=== PATIENT | female | born 2000 | race Caucasian/White ===

== ENCOUNTER 2025-02-09 13:34 | Inpatient (IN) ==
[2025-02-09] MEDS ORDERED: hydrALAZINE INJ 20 MG/ML VIAL IVP PRN (14:12)
[2025-02-09] MEDS ORDERED: SODIUM CHLORIDE FLUSH 0.9% 10 ML SYRINGE IVP PRN (14:12)
[2025-02-09] MEDS ORDERED: TRANEXAMIC ACID IN NACL 1,000 MG/100 ML BAG IV PRN (14:12)
[2025-02-09] MEDS ORDERED: TERBUTALINE 1 MG/ML VIAL SUBQ PRN (14:12)
[2025-02-09] MEDS ORDERED: METHYLERGONOVINE 0.2 MG/ML VIAL IM PRN (14:12)
[2025-02-09] MEDS ORDERED: OXYTOCIN/SODIUM CHLORIDE 500 ML IV PRN (14:12)
[2025-02-09] MEDS ORDERED: fentaNYL 100 MCG/2 ML VIAL IVP PRN (14:12)
[2025-02-09] MEDS ORDERED: CARBOPROST TROMETHAMINE 250 MCG/ML VIAL IM PRN (14:12)
[2025-02-09] MEDS ORDERED: LABETALOL 20 MG/4 ML SYRINGE IVP PRN ×3 (14:12)
[2025-02-09] MEDS ORDERED: OXYTOCIN 10 UNIT/ML VIAL IM PRN (14:12)
--- NOTE | 2025-02-09 14:24 | HISTORY & PHYSICAL EXAMINATION ---
Admit History Smoking Status: Never smoker Other Maternal History Other Maternal History: This 24 yo @ 39+5 weeks by 14 week ultrasound presented to [facility] for elective induction of labor. Upon arrival her cervix exam was deferred as she was 1.5cm/60/-3/ posterior/medium/intact and cephalic in the clinic two days prior. The cervical exam was very uncomfortable for her. León score 4. She understands her cervix is not yet favorable for induction and that the process with be multi-day event and desires to begin the induction process today vs awaiting natural onset of labor. Will plan for preinduction cervical ripening with misoprostol. Reviewed that Misoprostol is used off-label for cervical ripening to soften and dilate the cervix before gynecological procedures and labor. Although not officially approved for this indication, studies have shown it to be effective and generally safe when used under careful supervision. However, because misoprostol stimulates uterine contractions, there is a risk of uterine tachysystole (excessively frequent contractions). This can increase the risk of uterine hyperstimulation or distress in -related uses, so careful dosing and monitoring are essential. Reviewed that risks of labor include but are not limited to section, prolonged labor, vacuum extraction, episotomy, hemorrhage, and additional risks exist re: prolonged second stage related to extraction. Reviewed back up OBGYN is available for consultations, emergency interventions and transfer of care if indicted. She has been a patient of [facility] care for the duration of her which has remained uncomplicated with the exception of elevated BP in at 14+1 weeks gestation and then at 33+1 weeks gestation without diagnosis of hypertension. ROS: No Headache, visual changes or right upper quadrant abdominal pain. Denies significant N/V. Denies urinary urgency or dysuria. All other symptoms reviewed and were negative except per HPI. In the event of an emergency, accepts the administration of blood products. Recent BP: 128/80 Labs: H&H 13.5/38.4, PLT 264. 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 Monogamous with male partner. Denies current use of alcohol or tobacco, marijuana or other recreational drugs. Reports that she is safe in current relationship. Family Hx:Parkinson's disease & alcoholism (PGF), dementia (PGM & Mother), colon cancer (MGF). Denies family history of congenital anomalies, Cystic Fibrosis or chromosomal abnormalities Allergies: NKA Medications: PNV, LDASA Problems: Elevated BP at initial OB encounter. LDASA initiated at approximately 14 weeks FOB: Gustavo Elias LMP:05/16/2024 GABRIELLA by LMP: 02/20/2025 U/S:08/14/2024 @ 14+1 NOT c/w LMP Final GABRIELLA:02/11/2025 by US Pre- weight: 196 BMI: 30.9 Blood type: A+ Antibody screen: negative CBC: PLT HCT HGB 12.4/36.3 228 rubella: non immune VZV: Immune HBsAg: Negative HepC: NR RPR/AB-EIA: NR HIV: NR Flu: declines COVID: declines PAP: 02/20/2024 NILM GC/CT: 08/14/2024 Neg HSV: denies Genetic screening: MaterniT Neg, Frag X-- negative, CF- Negative, SMA- Negative AFP:not done FAS: Placenta:anterior w/o previa Cord:3VC RONAL:wnl EFW:402g, 44th%ile 50gm GCT: 122 TDAP: Declines Breast Pump: 12/11/2024 3rd trimester H/H PLT [id number] 3rd trimester RPR NR RSV: declines GBS: 01/15/25 neg third trimester EPDS: 1 Delivery plan: unmedicated delivery, desires to labor in water understands our policy does not support in tub. Okay with saline lock, plans to breastfeed. Baby meds: Okay with vitamin K, plans to decline erythromycin and hepatitis B. contraception Physical exam: Normocephalic, atraumatic Lungs: No increased work of breathing Abdomen gravid, soft, nontender. EFW 3950g FHR baseline wondering 125-145, moderate to marked variability, + accelerations, no significant decelerations. Not delvis. SVE 1.5/60/-3 & vertex 02/07/2025 membranes intact Bilateral LE's no edema Mood is good. Assessment: 24 yo @ 39+5 weeks gestation by 14 wk U/S Term induction of labor FHR 125-145 Cat I. Overall reassuring. GBS negative Plan: Admit to [facility] for preinduction cervical ripening: Misoprostol 50mcg BC q4 hours x6 doses or until otherwise contraindicated. Continuous monitoring Support her desires for pain management as arises. Jacuzzi PRN. Nitrous oxide PRN. Epidural PRN Maternal Request but currently not desiring epidural as part of her plan. Meds/Allgy Home Medications Ambulatory Orders Medication Instructions Recorded Confirmed vits no.126-ferrous fum tab PO QDAY 08/09/24 02/07/25 28 mg iron-folic acid 800 mcg tablet (Classic ) Allergies Allergies Allergy/AdvReac Type Severity Reaction Status Date / Time No Known Drug Allergies Allergy Verified 01/29/25 16:20 PFSH Active Problems All Active Problems (Updated 02/09/25 @ 14:18 by RAEANN Lemos) 39 weeks gestation of (Acute) Right upper quadrant abdominal pain affecting (Acute) Uterine size date discrepancy (Acute) Elevated blood pressure reading in office without diagnosis of hypertension (Acute) Vaginal irritation (Acute) Pelvic pain during in second trimester, antepartum (Acute) Vaginal discharge (Acute) Normal in second trimester (Acute) Encounter for other specified screening (Acute) Encounter for supervision of normal , unspecified, first trimester (Acute) Positive test (Acute) Surgical History Surgical History (Updated 08/09/24 @ 13:43 by Sharla Perry RN) Hx of tonsillectomy Mcgrath teeth extracted Family History Family History (Updated 08/09/24 @ 13:45 by Sharla Perry RN) Paternal grandfather Parkinsons disease Alcoholism Paternal grandmother Dementia Mother Dementia Maternal grandfather Colon cancer Social History Social History (Updated 12/11/24 @ 15:16 by Shelli Mejia CNM, [employer]) Smoking Status: Never smoker Do you dip or chew tobacco?: No Do you vape?: No Living arrangement: At home Living Condition: With spouse/s.o. Level: Independent Do you feel safe in your home environment?: Yes History of physical, verbal, emotional, or financial abuse?: No ETOH Use: None Substance Use: denies use Are you sexually active?: Yes Occupation - Current: [employer] Plan for Labor Plan For Labor I expect patient to be DC'd or transferred within 96 hours.: Yes Conclusion/Plan Lab Results 02/09/25 14:05 02/09/25 14:05
[2025-02-09 14:34] LABS: HCT - HEMATOCRIT 38.4 % (37.0-47.0); HGB - HEMOGLOBIN 13.5 g/dL (12.0-16.0); MEAN PLATELET VOLUME 10.4 fL (7.9-10.8); NRBC ABSOLUTE COUNT (AUTO) 0.00 x10^3/uL; NUCLEATED RED BLOOD CELLS AUTO 0.0 /100WBC; PLT - PLATELET COUNT 264 10^3/uL (130-450); RED CELL DISTRIBUTION WIDTH 12.7 % (12.0-15.0)
[2025-02-09 14:46] LABS: ALT ALANINE AMINOTRANSFERASE 14.0 IU/L (10-60); AST ASPARTATE AMINOTRANSFERASE 15.0 IU/L (10-42); BUN - BLOOD UREA NITROGEN 11.0 mg/dL (6-20); CARBON DIOXIDE - CO2 18.0 mmol/L (21-32); CREATININE 0.7 mg/dL (0.6-1.3); GFR - MDRD 104.0 (>89)
[2025-02-09] MEDS ORDERED: SODIUM CHLORIDE FLUSH 0.9% 10 ML SYRINGE IVP SCH (15:00)
[2025-02-09] MEDS ORDERED: ACETAMINOPHEN 500 MG TABLET PO PRN (15:41)
[2025-02-09] MEDS ORDERED: METOCLOPRAMIDE 10 MG/2 ML VIAL IVP PRN (15:42)
[2025-02-09] MEDS ORDERED: ONDANSETRON 4 MG/2 ML VIAL IVP PRN (15:42)
[2025-02-09] MEDS ORDERED: CALCIUM CARBONATE CHEW 500 MG TABLET PO PRN (15:43)
--- NOTE | 2025-02-09 18:38 | PROVIDER PROGRESS NOTE ---
Labor Progress Note Labor Progress Note Labor Progress Note/Additional Text: S: Comfortable, ambulating and resting in room, not feeling and contractions or discomfort. S/P misoprostol 50mcg x1 dose. O: FHR baseline wandering 135-150, [id number] variability (mostly moderate), + accels, intermittent variables and possible rare prolonged decels vs maternal tracing. Overall reassuring with moderate variability maintained throughout. Uterine irritability 20-40 seconds, without distinguishable contraction pattern. Will encourage oral hydration. Reviewed the last 2 hours of EFM tracing with stone driller helper OBGYN. Agreed with plan of care to continue with misoprostol as ordered given only a small amount of u terine irritability and no discernable contractions pattern. No SVE since admission. Last SVE in clinic on 02/07 1.5/60/-3 S/p 1 doses 50mcg BC misoprostol A: 24yo @ 39+5wks gestation by 14 week ultrasound Elective IOL FHR Category I, intermittent FHR category II, overall reassuring GBS neg RH positive P: Continue with misoprostol for cervical ripening Continue continuous monitoring. nitrous, IV fentanyl, jacuzzi or Epidural per maternal request as pain increases. encourage rest during cervical ripening period Reviewed plan of care with on-call physician
--- NOTE | 2025-02-09 18:40 | PROVIDER PROGRESS NOTE ---
Labor Progress Note Labor Progress Note Labor Progress Note/Additional Text: Reviewed plan of care to continue misoprostol 50mcg BC q4 hours with primary day shift RN.
--- NOTE | 2025-02-09 20:32 | PROVIDER PROGRESS NOTE ---
Labor Progress Note Labor Progress Note Labor Progress Note/Additional Text: Patient is s/p misoprostol x2 doses. Last dose approximately 191. Safe nursing staffing does not allow for continuation of cervical ripening until 729. This will be discussed with the patient. Given intermittent category II tracing, I am uncomfortable discontinuing her monitoring through the night, even with expectant management. I am also uncomfortable discharging her to home. Nursing can support continuos monitoring and expectant management through the night but no medication management or CRB can be supported. If IOL cannot move forward tomorrow, I will discuss options with the patient to transfer care so we can safely help her move towards delivery.
[2025-02-09] MEDS: LACTATED RINGERS 1,000 ML IV PRN (20:50)
--- NOTE | 2025-02-10 08:54 | PROVIDER PROGRESS NOTE ---
Labor Progress Note Labor Progress Note Labor Progress Note/Additional Text: 24yo @ 39+6 weeks gestation admitted yesterday for elective induction of labor. Misoprostol x2 dose. Last dose approximately 1930 on 02/09. I Was made aware of, and reviewed tracing this morning with dayshift RN upon my arrival to the unit. Notably, significant prolonged decelerations overnight x6 lasting 4-6 minutes each. Now delvis q 2-3minutes, feeling discomfort with contractions but not pain. SVE 1.5/70/-3, midpostion, intact. Remote from delivery. @0822 this morning following SVE, she had an 8 minute deceleration to the 80's despite uterine resuscitation measures followed by tachycardia and minimal variability. Discussed with patient that with significant distress we have limited options induction/augmentation however she is delvis and baby has recovered so at this moment things are okay to continue to monitor. She desired nitrous for pain management however, it is not available on the unit. Has difficulty tolerating vaginal exams. Unable to safely release bag of water. I have called to consult my OBGYN backup to review the tracing, patient status and to define a plan moving forward. Following the discussion, will plan for BSUS RONAL, and expectant management. Orthostatics normal.
[2025-02-10] MEDS: LACTATED RINGERS 1,000 ML IV PRN (09:10)
--- NOTE | 2025-02-10 09:23 | PROVIDER PROGRESS NOTE ---
Subjective Subjective Subjective: BSUS RONAL SDP 5.39 Current Medications Current Medications Current Medications: Current Medications Generic Name Dose Route Start Last Admin Trade Name Freq PRN Reason Stop Dose Admin Acetaminophen 1,000 mg 02/09/25 15:41 Acetaminophen 500 Mg Tablet PO Q8HR PRN Pain or Fever > 38C (100.4F) Calcium Carbonate/Glycine 500 mg 02/09/25 15:43 Calcium Carbonate Chew 500 Mg Tablet PO BID PRN heartburn Carboprost Tromethamine 250 mcg 02/09/25 14:12 Carboprost Tromethamine 250 Mcg/Ml Vial IM .ONCE PRN Hemorrhage Diphenhydramine HCl 25 mg 02/09/25 15:43 Diphenhydramine 25 Mg Capsule PO Q4HR PRN ITCHING Fentanyl 50 mcg 02/09/25 14:12 Fentanyl 100 Mcg/2 Ml Vial IVP Q1H PRN Severe Pain (score 7-10) Hydralazine HCl 5 - 10 mg 02/09/25 14:12 Hydralazine Inj 20 Mg/Ml Vial IVP Q20M PRN SBP> or= 160 OR DBP> or= 110 Protocol Hydroxyzine Pamoate 25 mg 02/09/25 15:43 Hydroxyzine Pamoate 25 Mg Capsule PO QPM PRN Insomnia Lactated Ringer's 500 mls @ 999 mls/hr 02/09/25 14:12 02/09/25 22:00 Lr IV Infused PRN PRN Infusion Heart Rate Abnormalities Oxytocin/Sodium Chloride 500 mls @ 999 mls/hr 02/09/25 14:12 Pitocin/Sodium Chloride IV PRN PRN POST- HEMORR PREVENTION Protocol 999 MILLIUNIT/MIN Tranexamic Acid 1,000 mg in 100 mls @ 600 mls/hr 02/09/25 14:12 Tranexamic 1,000 Mg/100ml-Nacl IV Q30M PRN EBL >1200mL and within 3hr Lactated Ringer's 1,000 mls @ 125 mls/hr 02/09/25 16:00 02/10/25 09:10 Lr IV 125 mls/hr .Q8H PRN Administration dehydration Labetalol HCl 20 - 80 mg 02/09/25 14:12 Labetalol 20 Mg/4 Ml Syringe IVP Q10M PRN SBP> or= 160 OR DBP> or= 110 Protocol Labetalol HCl 20 mg 02/09/25 14:12 Labetalol 20 Mg/4 Ml Syringe IVP .ONCE PRN SBP> or= 160 OR DBP> or= 110 Protocol Labetalol HCl 20 - 40 mg 02/09/25 14:12 Labetalol 20 Mg/4 Ml Syringe IVP Q10M PRN SBP> or= 160 OR DBP> or= 110 Protocol Lidocaine HCl 20 ml 02/09/25 14:12 Lidocaine 1% 20 Ml Mdv ID 02/12/25 14:13 .ONCE PRN PERINEAL REPAIR Methylergonovine Maleate 0.2 mg 02/09/25 14:12 Methylergonovine 0.2 Mg/Ml Vial IM .ONCE PRN Hemorrhage Metoclopramide HCl 5 mg 02/09/25 15:42 Metoclopramide 10 Mg/2 Ml Vial IVP Q6HR PRN Nausea / Vomiting Misoprostol 600 mcg 02/09/25 14:12 Misoprostol 200 Mcg Tablet BC .ONCE PRN Hemorrhage Misoprostol 800 mcg 02/09/25 14:12 Misoprostol 200 Mcg Tablet WI .ONCE PRN Hemorrhage Misoprostol 50 mcg 02/09/25 15:00 02/09/25 19:21 Misoprostol 100 Mcg Tablet BC 50 mcg Q4H JARRED Administration Nifedipine 10 - 20 mg 02/09/25 14:12 Nifedipine 10 Mg Capsule PO Q20M PRN SBP> or= 160 OR DBP> or= 110 Protocol Ondansetron HCl 4 mg 02/09/25 15:42 Ondansetron 4 Mg/2 Ml Vial IVP Q4HR PRN Nausea / Vomiting Oxytocin 10 unit 02/09/25 14:12 Oxytocin 10 Unit/Ml Vial IM .ONCE PRN Step One if no IV access. Multivit/Folic Acid/Iron 1 tab 02/10/25 08:00 Vitamin Tablet PO DAILYWM JARRED Simethicone 80 mg 02/09/25 15:45 Simethicone Chew 80 Mg Tablet PO 0900,1300,1800,2100 PRN gastric upset Sodium Chloride 10 ml 02/09/25 14:12 Sodium Chloride Flush 0.9% 10 Ml Syringe IVP PRN PRN NEEDED PER PROVIDER ORDERS Sodium Chloride 10 ml 02/09/25 15:00 Sodium Chloride Flush 0.9% 10 Ml Syringe IVP Q8H [facility] Terbutaline Sulfate 0.25 mg 02/09/25 14:12 Terbutaline 1 Mg/Ml Vial SUBQ .ONCE PRN Tachystole Objective Vital Signs/Intake & Output Intake & Output: Intake & Output 02/07/25 02/08/25 02/09/25 02/10/25 23:59 23:59 23:59 23:59 Intake Total 500 / 500 Balance 500 / 500 Weight (kg) 233 lb Lab Results 02/09/25 14:05 02/09/25 14:05 Other Labs: Lab Results x24hrs 02/09/25 Range/Units 14:05 WBC 8.3 (4.8-10.8) x10^3/uL RBC 4.24 (4.20-5.40) 10^6/uL Hgb 13.5 (12.0-16.0) g/dL Hct 38.4 (37.0-47.0) % MCV 90.6 (81.0-99.0) fL MCH 31.8 H (27.0-31.0) pg MCHC 35.2 (32.0-36.0) g/dL RDW 12.7 (12.0-15.0) % Plt Count 264 (130-450) 10^3/uL MPV 10.4 (7.9-10.8) fL Neut # (Auto) 6.1 (1.5-6.6) 10^3/uL Lymph # (Auto) 1.6 (1.5-3.5) 10^3/uL [place] # (Auto) 0.4 (0.0-1.0) 10^3/uL Eos # (Auto) 0.1 (0.0-0.7) 10^3/uL Baso # (Auto) 0.0 (0.0-0.1) 10^3/uL Absolute Nucleated RBC 0.00 x10^3/uL Nucleated RBC % 0.0 /100WBC Sodium 134 L (135-145) mmol/L Potassium 3.8 (3.5-4.5) mmol/L Chloride 107 (101-111) mmol/L Carbon Dioxide 18 L (21-32) mmol/L Anion Gap 9.0 (6-13) BUN 11 (6-20) mg/dL Creatinine 0.7 (0.6-1.3) mg/dL Estimated GFR (MDRD) 104 (>89) Glucose 150 H (74-104) mg/dL Calcium 9.1 (8.5-10.3) mg/dL Total Bilirubin 0.4 (0.2-1.0) mg/dL AST 15 (10-42) IU/L ALT 14 (10-60) IU/L Alkaline Phosphatase 194 H (42-121) IU/L Total Protein 6.6 (6.4-8.9) g/dL Albumin 3.8 (3.2-5.5) g/dL Globulin 2.8 (2.1-4.2) g/dL Albumin/Globulin Ratio 1.4 (1.0-2.2) Blood Type A POSITIVE Antibody Screen NEGATIVE
--- NOTE | 2025-02-10 09:32 | PROVIDER PROGRESS NOTE ---
Subjective Subjective Subjective: Lengthy discussion with patient regarding prolonged decelerations, limitations of reserve and remote from delivery status and limited options for progression as well as the possibility of primary c/s. The unit was able to secure the last nitrous tubing so she will have the option for nitrous analgesia. If baby does well the next while will see if patient tolerates a CRB placement. Current Medications Current Medications Current Medications: Current Medications Generic Name Dose Route Start Last Admin Trade Name Freq PRN Reason Stop Dose Admin Acetaminophen 1,000 mg 02/09/25 15:41 Acetaminophen 500 Mg Tablet PO Q8HR PRN Pain or Fever > 38C (100.4F) Calcium Carbonate/Glycine 500 mg 02/09/25 15:43 Calcium Carbonate Chew 500 Mg Tablet PO BID PRN heartburn Carboprost Tromethamine 250 mcg 02/09/25 14:12 Carboprost Tromethamine 250 Mcg/Ml Vial IM .ONCE PRN Hemorrhage Diphenhydramine HCl 25 mg 02/09/25 15:43 Diphenhydramine 25 Mg Capsule PO Q4HR PRN ITCHING Fentanyl 50 mcg 02/09/25 14:12 Fentanyl 100 Mcg/2 Ml Vial IVP Q1H PRN Severe Pain (score 7-10) Hydralazine HCl 5 - 10 mg 02/09/25 14:12 Hydralazine Inj 20 Mg/Ml Vial IVP Q20M PRN SBP> or= 160 OR DBP> or= 110 Protocol Hydroxyzine Pamoate 25 mg 02/09/25 15:43 Hydroxyzine Pamoate 25 Mg Capsule PO QPM PRN Insomnia Lactated Ringer's 500 mls @ 999 mls/hr 02/09/25 14:12 02/09/25 22:00 Lr IV Infused PRN PRN Infusion Heart Rate Abnormalities Oxytocin/Sodium Chloride 500 mls @ 999 mls/hr 02/09/25 14:12 Pitocin/Sodium Chloride IV PRN PRN POST- HEMORR PREVENTION Protocol 999 MILLIUNIT/MIN Tranexamic Acid 1,000 mg in 100 mls @ 600 mls/hr 02/09/25 14:12 Tranexamic 1,000 Mg/100ml-Nacl IV Q30M PRN EBL >1200mL and within 3hr Lactated Ringer's 1,000 mls @ 125 mls/hr 02/09/25 16:00 02/10/25 09:10 Lr IV 125 mls/hr .Q8H PRN Administration dehydration Labetalol HCl 20 - 80 mg 02/09/25 14:12 Labetalol 20 Mg/4 Ml Syringe IVP Q10M PRN SBP> or= 160 OR DBP> or= 110 Protocol Labetalol HCl 20 mg 02/09/25 14:12 Labetalol 20 Mg/4 Ml Syringe IVP .ONCE PRN SBP> or= 160 OR DBP> or= 110 Protocol Labetalol HCl 20 - 40 mg 02/09/25 14:12 Labetalol 20 Mg/4 Ml Syringe IVP Q10M PRN SBP> or= 160 OR DBP> or= 110 Protocol Lidocaine HCl 20 ml 02/09/25 14:12 Lidocaine 1% 20 Ml Mdv ID 02/12/25 14:13 .ONCE PRN PERINEAL REPAIR Methylergonovine Maleate 0.2 mg 02/09/25 14:12 Methylergonovine 0.2 Mg/Ml Vial IM .ONCE PRN Hemorrhage Metoclopramide HCl 5 mg 02/09/25 15:42 Metoclopramide 10 Mg/2 Ml Vial IVP Q6HR PRN Nausea / Vomiting Misoprostol 600 mcg 02/09/25 14:12 Misoprostol 200 Mcg Tablet BC .ONCE PRN Hemorrhage Misoprostol 800 mcg 02/09/25 14:12 Misoprostol 200 Mcg Tablet FL .ONCE PRN Hemorrhage Misoprostol 50 mcg 02/09/25 15:00 02/09/25 19:21 Misoprostol 100 Mcg Tablet BC 50 mcg Q4H JARRED Administration Nifedipine 10 - 20 mg 02/09/25 14:12 Nifedipine 10 Mg Capsule PO Q20M PRN SBP> or= 160 OR DBP> or= 110 Protocol Ondansetron HCl 4 mg 02/09/25 15:42 Ondansetron 4 Mg/2 Ml Vial IVP Q4HR PRN Nausea / Vomiting Oxytocin 10 unit 02/09/25 14:12 Oxytocin 10 Unit/Ml Vial IM .ONCE PRN Step One if no IV access. Multivit/Folic Acid/Iron 1 tab 02/10/25 08:00 Vitamin Tablet PO DAILYWM JARRED Simethicone 80 mg 02/09/25 15:45 Simethicone Chew 80 Mg Tablet PO 0900,1300,1800,2100 PRN gastric upset Sodium Chloride 10 ml 02/09/25 14:12 Sodium Chloride Flush 0.9% 10 Ml Syringe IVP PRN PRN NEEDED PER PROVIDER ORDERS Sodium Chloride 10 ml 02/09/25 15:00 Sodium Chloride Flush 0.9% 10 Ml Syringe IVP Q8H JARRED Terbutaline Sulfate 0.25 mg 02/09/25 14:12 Terbutaline 1 Mg/Ml Vial SUBQ .ONCE PRN Tachystole Objective Vital Signs/Intake & Output Intake & Output: Intake & Output 02/07/25 02/08/25 02/09/25 02/10/25 23:59 23:59 23:59 23:59 Intake Total 500 / 500 Balance 500 / 500 Weight (kg) 233 lb Lab Results 02/09/25 14:05 02/09/25 14:05 Other Labs: Lab Results x24hrs 02/09/25 Range/Units 14:05 WBC 8.3 (4.8-10.8) x10^3/uL RBC 4.24 (4.20-5.40) 10^6/uL Hgb 13.5 (12.0-16.0) g/dL Hct 38.4 (37.0-47.0) % MCV 90.6 (81.0-99.0) fL MCH 31.8 H (27.0-31.0) pg MCHC 35.2 (32.0-36.0) g/dL RDW 12.7 (12.0-15.0) % Plt Count 264 (130-450) 10^3/uL MPV 10.4 (7.9-10.8) fL Neut # (Auto) 6.1 (1.5-6.6) 10^3/uL Lymph # (Auto) 1.6 (1.5-3.5) 10^3/uL [place] # (Auto) 0.4 (0.0-1.0) 10^3/uL Eos # (Auto) 0.1 (0.0-0.7) 10^3/uL Baso # (Auto) 0.0 (0.0-0.1) 10^3/uL Absolute Nucleated RBC 0.00 x10^3/uL Nucleated RBC % 0.0 /100WBC Sodium 134 L (135-145) mmol/L Potassium 3.8 (3.5-4.5) mmol/L Chloride 107 (101-111) mmol/L Carbon Dioxide 18 L (21-32) mmol/L Anion Gap 9.0 (6-13) BUN 11 (6-20) mg/dL Creatinine 0.7 (0.6-1.3) mg/dL Estimated GFR (MDRD) 104 (>89) Glucose 150 H (74-104) mg/dL Calcium 9.1 (8.5-10.3) mg/dL Total Bilirubin 0.4 (0.2-1.0) mg/dL AST 15 (10-42) IU/L ALT 14 (10-60) IU/L Alkaline Phosphatase 194 H (42-121) IU/L Total Protein 6.6 (6.4-8.9) g/dL Albumin 3.8 (3.2-5.5) g/dL Globulin 2.8 (2.1-4.2) g/dL Albumin/Globulin Ratio 1.4 (1.0-2.2) Blood Type A POSITIVE Antibody Screen NEGATIVE
--- NOTE | 2025-02-10 09:47 | PHARMACY PROGRESS NOTE ---
Best Possible Medication History Admit Date and Time: 02/09/25 1412 Home Medications Medication Instructions Recorded Confirmed Type vits no.126-ferrous fum 1 tab PO QDAY 5 02/09/25 History 28 mg iron-folic acid 800 mcg tablet (Classic ) Processed by: Pharmacy Medications reviewed in ED?: No Medication History completed: Yes Secondary Source(s): Physician records [facility] Statement: As the person ultimately responsible for medication therapy, providers are able to order a medication from an existing home medication list in [facility] via the "Reconcile Routine" prior to Confirmation of that medication by support team assoc. Such practice is discouraged except when the physician, in their clinical judgment, deems that a medical need exists for a medication without regard to previous use.
--- NOTE | 2025-02-10 10:02 | PROVIDER PROGRESS NOTE ---
Subjective Subjective Subjective: Discussed with patient process and risks vs benefit of CRB placement. After bedside consult with stereo equipment salesperson OBGYN, agreeable to pitocin augmentation. Would rather consider pitocin only first (not in tandem with CRB) as she is worried she will not tolerate the CRB placement well. Rating pain currently 0.5/10vps. Offered anesthesia consult now as SWITCHBOARD WIRE WORKER HELPER is available, she politely declines aneshesia at this time. Current Medications Current Medications Current Medications: Current Medications Generic Name Dose Route Start Last Admin Trade Name Freq PRN Reason Stop Dose Admin Acetaminophen 1,000 mg 02/09/25 15:41 Acetaminophen 500 Mg Tablet PO Q8HR PRN Pain or Fever > 38C (100.4F) Calcium Carbonate/Glycine 500 mg 02/09/25 15:43 Calcium Carbonate Chew 500 Mg Tablet PO BID PRN heartburn Carboprost Tromethamine 250 mcg 02/09/25 14:12 Carboprost Tromethamine 250 Mcg/Ml Vial IM .ONCE PRN Hemorrhage Diphenhydramine HCl 25 mg 02/09/25 15:43 Diphenhydramine 25 Mg Capsule PO Q4HR PRN ITCHING Docusate Sodium 100 mg 02/10/25 10:00 Docusate Sodium 100 Mg Capsule PO BID JARRED Fentanyl 50 mcg 02/09/25 14:12 Fentanyl 100 Mcg/2 Ml Vial IVP Q1H PRN Severe Pain (score 7-10) Hydralazine HCl 5 - 10 mg 02/09/25 14:12 Hydralazine Inj 20 Mg/Ml Vial IVP Q20M PRN SBP> or= 160 OR DBP> or= 110 Protocol Hydroxyzine Pamoate 25 mg 02/09/25 15:43 Hydroxyzine Pamoate 25 Mg Capsule PO QPM PRN Insomnia Lactated Ringer's 500 mls @ 999 mls/hr 02/09/25 14:12 02/09/25 22:00 Lr IV Infused PRN PRN Infusion Heart Rate Abnormalities Oxytocin/Sodium Chloride 500 mls @ 999 mls/hr 02/09/25 14:12 Pitocin/Sodium Chloride IV PRN PRN POST- HEMORR PREVENTION Protocol 999 MILLIUNIT/MIN Tranexamic Acid 1,000 mg in 100 mls @ 600 mls/hr 02/09/25 14:12 Tranexamic 1,000 Mg/100ml-Nacl IV Q30M PRN EBL >1200mL and within 3hr Lactated Ringer's 1,000 mls @ 125 mls/hr 02/09/25 16:00 02/10/25 09:10 Lr IV 125 mls/hr .Q8H PRN Administration dehydration Labetalol HCl 20 - 80 mg 02/09/25 14:12 Labetalol 20 Mg/4 Ml Syringe IVP Q10M PRN SBP> or= 160 OR DBP> or= 110 Protocol Labetalol HCl 20 mg 02/09/25 14:12 Labetalol 20 Mg/4 Ml Syringe IVP .ONCE PRN SBP> or= 160 OR DBP> or= 110 Protocol Labetalol HCl 20 - 40 mg 02/09/25 14:12 Labetalol 20 Mg/4 Ml Syringe IVP Q10M PRN SBP> or= 160 OR DBP> or= 110 Protocol Lidocaine HCl 20 ml 02/09/25 14:12 Lidocaine 1% 20 Ml Mdv ID 02/12/25 14:13 .ONCE PRN PERINEAL REPAIR Methylergonovine Maleate 0.2 mg 02/09/25 14:12 Methylergonovine 0.2 Mg/Ml Vial IM .ONCE PRN Hemorrhage Metoclopramide HCl 5 mg 02/09/25 15:42 Metoclopramide 10 Mg/2 Ml Vial IVP Q6HR PRN Nausea / Vomiting Misoprostol 600 mcg 02/09/25 14:12 Misoprostol 200 Mcg Tablet BC .ONCE PRN Hemorrhage Misoprostol 800 mcg 02/09/25 14:12 Misoprostol 200 Mcg Tablet [place] .ONCE PRN Hemorrhage Misoprostol 50 mcg 02/09/25 15:00 02/09/25 19:21 Misoprostol 100 Mcg Tablet BC 50 mcg Q4H JARRED Administration Nifedipine 10 - 20 mg 02/09/25 14:12 Nifedipine 10 Mg Capsule PO Q20M PRN SBP> or= 160 OR DBP> or= 110 Protocol Ondansetron HCl 4 mg 02/09/25 15:42 Ondansetron 4 Mg/2 Ml Vial IVP Q4HR PRN Nausea / Vomiting Oxytocin 10 unit 02/09/25 14:12 Oxytocin 10 Unit/Ml Vial IM .ONCE PRN Step One if no IV access. Polyethylene Glycol 17 gm 02/10/25 09:54 Polyethylene Glycol 3350 17 Gm Packet PO DAILY PRN Bowel Protocol Multivit/Folic Acid/Iron 1 tab 02/10/25 08:00 Vitamin Tablet PO DAILYWM JARRED Simethicone 80 mg 02/09/25 15:45 Simethicone Chew 80 Mg Tablet PO 0900,1300,1800,2100 PRN gastric upset Sodium Chloride 10 ml 02/09/25 14:12 Sodium Chloride Flush 0.9% 10 Ml Syringe IVP PRN PRN NEEDED PER PROVIDER ORDERS Sodium Chloride 10 ml 02/09/25 15:00 Sodium Chloride Flush 0.9% 10 Ml Syringe IVP Q8H JARRED Terbutaline Sulfate 0.25 mg 02/09/25 14:12 Terbutaline 1 Mg/Ml Vial SUBQ .ONCE PRN Tachystole Objective Vital Signs/Intake & Output Intake & Output: Intake & Output 02/07/25 02/08/25 02/09/25 02/10/25 23:59 23:59 23:59 23:59 Intake Total 500 / 500 Balance 500 / 500 Weight (kg) 233 lb Lab Results 02/09/25 14:05 02/09/25 14:05 Other Labs: Lab Results x24hrs 02/09/25 Range/Units 14:05 WBC 8.3 (4.8-10.8) x10^3/uL RBC 4.24 (4.20-5.40) 10^6/uL Hgb 13.5 (12.0-16.0) g/dL Hct 38.4 (37.0-47.0) % MCV 90.6 (81.0-99.0) fL MCH 31.8 H (27.0-31.0) pg MCHC 35.2 (32.0-36.0) g/dL RDW 12.7 (12.0-15.0) % Plt Count 264 (130-450) 10^3/uL MPV 10.4 (7.9-10.8) fL Neut # (Auto) 6.1 (1.5-6.6) 10^3/uL Lymph # (Auto) 1.6 (1.5-3.5) 10^3/uL [place] # (Auto) 0.4 (0.0-1.0) 10^3/uL Eos # (Auto) 0.1 (0.0-0.7) 10^3/uL Baso # (Auto) 0.0 (0.0-0.1) 10^3/uL Absolute Nucleated RBC 0.00 x10^3/uL Nucleated RBC % 0.0 /100WBC Sodium 134 L (135-145) mmol/L Potassium 3.8 (3.5-4.5) mmol/L Chloride 107 (101-111) mmol/L Carbon Dioxide 18 L (21-32) mmol/L Anion Gap 9.0 (6-13) BUN 11 (6-20) mg/dL Creatinine 0.7 (0.6-1.3) mg/dL Estimated GFR (MDRD) 104 (>89) Glucose 150 H (74-104) mg/dL Calcium 9.1 (8.5-10.3) mg/dL Total Bilirubin 0.4 (0.2-1.0) mg/dL AST 15 (10-42) IU/L ALT 14 (10-60) IU/L Alkaline Phosphatase 194 H (42-121) IU/L Total Protein 6.6 (6.4-8.9) g/dL Albumin 3.8 (3.2-5.5) g/dL Globulin 2.8 (2.1-4.2) g/dL Albumin/Globulin Ratio 1.4 (1.0-2.2) Blood Type A POSITIVE Antibody Screen NEGATIVE
[2025-02-10] MEDS: OXYTOCIN/SODIUM CHLORIDE 500 ML IV SCH (10:57)
--- NOTE | 2025-02-10 12:02 | CONSULTATION NOTE ---
History of Present Illness History of Present Illness HPI Comment/Other: Patient is a 24-year-old 39 weeks 6 days gestation presents today very here today for induction of labor. Induction of labor started yesterday with 2 doses of misoprostol over the afternoon. We were unable to augment overnight due to staffing limitations, but she had occasional decelerations without induction agents, but good recovery afterwards. She is feeling well now and no issues. We wanted to discuss section as a possibility and likelithood if decelerations return. Meds/Allgy Home Medications Ambulatory Orders Medication Instructions Recorded Confirmed vits no.[id number] fum 1 tab PO QDAY 5 02/09/25 28 mg iron-folic acid 800 mcg tablet (Classic ) Allergies Allergies Allergy/AdvReac Type Severity Reaction Status Date / Time No Known Drug Allergies Allergy Verified 01/29/25 16:20 PFSH Active Problems All Active Problems (Updated 02/10/25 @ 12:01 by Warner Seaman MD) Category II heart rate tracing during maternal care in third trimester (Acute) 39 weeks gestation of (Acute) Right upper quadrant abdominal pain affecting (Acute) Uterine size date discrepancy (Acute) Elevated blood pressure reading in office without diagnosis of hypertension (Acute) Vaginal irritation (Acute) Pelvic pain during in second trimester, antepartum (Acute) Vaginal discharge (Acute) Positive test (Acute) Medical History Medical History (Updated 02/10/25 @ 12:01 by Warner Seaman MD) Encounter for supervision of normal , unspecified, first trimester Encounter for other specified screening Normal in second trimester Surgical History Surgical History (Updated 08/09/24 @ 13:43 by Sharla Perry RN) Hx of tonsillectomy [place] teeth extracted Family History Family History (Updated 08/09/24 @ 13:45 by Sharla Perry RN) Paternal grandfather Parkinsons disease Alcoholism Paternal grandmother Dementia Mother Dementia Maternal grandfather Colon cancer Social History Social History (Updated 12/11/24 @ 15:16 by Shelli Mejia CNM, POWER SAW MECHANIC) Smoking Status: Never smoker Do you dip or chew tobacco?: No Do you vape?: No Living arrangement: At home Living Condition: With spouse/s.o. Level: Independent Do you feel safe in your home environment?: Yes History of physical, verbal, emotional, or financial abuse?: No ETOH Use: None Substance Use: denies use Are you sexually active?: Yes Occupation - Current: Director Index at [employer] Results Lab Results 02/09/25 14:05 02/09/25 14:05 Other Lab Results: Lab Results x24hrs 02/09/25 Range/Units 14:05 WBC 8.3 (4.8-10.8) x10^3/uL RBC 4.24 (4.20-5.40) 10^6/uL Hgb 13.5 (12.0-16.0) g/dL Hct 38.4 (37.0-47.0) % MCV 90.6 (81.0-99.0) fL MCH 31.8 H (27.0-31.0) pg MCHC 35.2 (32.0-36.0) g/dL RDW 12.7 (12.0-15.0) % Plt Count 264 (130-450) 10^3/uL MPV 10.4 (7.9-10.8) fL Neut # (Auto) 6.1 (1.5-6.6) 10^3/uL Lymph # (Auto) 1.6 (1.5-3.5) 10^3/uL [place] # (Auto) 0.4 (0.0-1.0) 10^3/uL Eos # (Auto) 0.1 (0.0-0.7) 10^3/uL Baso # (Auto) 0.0 (0.0-0.1) 10^3/uL Absolute Nucleated RBC 0.00 x10^3/uL Nucleated RBC % 0.0 /100WBC Sodium 134 L (135-145) mmol/L Potassium 3.8 (3.5-4.5) mmol/L Chloride 107 (101-111) mmol/L Carbon Dioxide 18 L (21-32) mmol/L Anion Gap 9.0 (6-13) BUN 11 (6-20) mg/dL Creatinine 0.7 (0.6-1.3) mg/dL Estimated GFR (MDRD) 104 (>89) Glucose 150 H (74-104) mg/dL Calcium 9.1 (8.5-10.3) mg/dL Total Bilirubin 0.4 (0.2-1.0) mg/dL AST 15 (10-42) IU/L ALT 14 (10-60) IU/L Alkaline Phosphatase 194 H (42-121) IU/L Total Protein 6.6 (6.4-8.9) g/dL Albumin 3.8 (3.2-5.5) g/dL Globulin 2.8 (2.1-4.2) g/dL Albumin/Globulin Ratio 1.4 (1.0-2.2) Blood Type A POSITIVE Antibody Screen NEGATIVE Exam Exam SVE: Last checked by primary provider was 1.5/70/-3 FHT: 135 beats per baseline, moderare variability, accelerations present no deceleratons [place]: Irregular Constitutional normal general appearance, no apparent distress and alert Respiratory normal respiratory effort Psychiatry mental status grossly normal and oriented x3 Conclusion/Plan Problem List (1) Category II heart rate tracing during maternal care in third trimester: Plan: Patient has been category 1 this morning since I came on shift. I am unsure why she had category 2 tracing overnight despite not having any induction agents. We discussed possible reasons, but that given her remoteness from delivery, vaginal delivery seems much less likely. Fetus has recovered after events, but we cannot promise that will always be the casee. We are willing to try oxytocin for induction (declined CRB due to discomfort), but that with additional episodes, we will likely proceed with . section was discussed. Risks, benefits and alternatives were discussed including but not limited to infection, bleeding that may require blood products or hysterectomy for life saving measures, injury to surrounding organs including but not limited to bowel, bladder, ureters, tubes and ovaries and/or the baby. Should injury occur it could require longer/additional surgery to repair. All questions were answered posed by patient. We discussed anesthesia for sections with options of epidural now or soon that would allow preparation for if we moved in that direction. She declines epidural now. Declines anesthesia consult now. Discussed spinal anesthesia that may be possible if fetus recovers but we have additional events. Discussed general anesthesia if this is an emergent surgery. Patient expresses understanding. (2) 39 weeks gestation of : Lab Results 02/09/25 14:05 02/09/25 14:05
--- NOTE | 2025-02-10 13:37 | PROVIDER PROGRESS NOTE ---
Current Medications Current Medications Current Medications: Current Medications Generic Name Dose Route Start Last Admin Trade Name Freq PRN Reason Stop Dose Admin Acetaminophen 1,000 mg 02/09/25 15:41 Acetaminophen 500 Mg Tablet PO Q8HR PRN Pain or Fever > 38C (100.4F) Calcium Carbonate/Glycine 500 mg 02/09/25 15:43 Calcium Carbonate Chew 500 Mg Tablet PO BID PRN heartburn Carboprost Tromethamine 250 mcg 02/09/25 14:12 Carboprost Tromethamine 250 Mcg/Ml Vial IM .ONCE PRN Hemorrhage Diphenhydramine HCl 25 mg 02/09/25 15:43 Diphenhydramine 25 Mg Capsule PO Q4HR PRN ITCHING Docusate Sodium 100 mg 02/10/25 10:00 Docusate Sodium 100 Mg Capsule PO BID JARRED Fentanyl 50 mcg 02/09/25 14:12 Fentanyl 100 Mcg/2 Ml Vial IVP Q1H PRN Severe Pain (score 7-10) Hydralazine HCl 5 - 10 mg 02/09/25 14:12 Hydralazine Inj 20 Mg/Ml Vial IVP Q20M PRN SBP> or= 160 OR DBP> or= 110 Protocol Hydroxyzine Pamoate 25 mg 02/09/25 15:43 Hydroxyzine Pamoate 25 Mg Capsule PO QPM PRN Insomnia Lactated Ringer's 500 mls @ 999 mls/hr 02/09/25 14:12 02/09/25 22:00 Lr IV Infused PRN PRN Infusion Heart Rate Abnormalities Oxytocin/Sodium Chloride 500 mls @ 999 mls/hr 02/09/25 14:12 Pitocin/Sodium Chloride IV PRN PRN POST- HEMORR PREVENTION Protocol 999 MILLIUNIT/MIN Tranexamic Acid 1,000 mg in 100 mls @ 600 mls/hr 02/09/25 14:12 Tranexamic 1,000 Mg/100ml-Nacl IV Q30M PRN EBL >1200mL and within 3hr Lactated Ringer's 1,000 mls @ 125 mls/hr 02/09/25 16:00 02/10/25 09:10 Lr IV 125 mls/hr .Q8H PRN Administration dehydration Oxytocin/Sodium Chloride 500 mls @ 2 mls/hr 02/10/25 11:00 02/10/25 12:01 Pitocin/Sodium Chloride IV 6 milliunit/min TITR JARRED 6 mls/hr Protocol Titration 2 MILLIUNIT/MIN Lactated Ringer's 1,000 mls @ 125 mls/hr 02/10/25 14:00 Lr IV .Q8H JARRED Cefazolin Sodium 2 gm/ Sodium 100 mls @ 200 mls/hr 02/10/25 14:00 Chloride IV 02/10/25 14:29 ONCE ONE Labetalol HCl 20 - 80 mg 02/09/25 14:12 Labetalol 20 Mg/4 Ml Syringe IVP Q10M PRN SBP> or= 160 OR DBP> or= 110 Protocol Labetalol HCl 20 mg 02/09/25 14:12 Labetalol 20 Mg/4 Ml Syringe IVP .ONCE PRN SBP> or= 160 OR DBP> or= 110 Protocol Labetalol HCl 20 - 40 mg 02/09/25 14:12 Labetalol 20 Mg/4 Ml Syringe IVP Q10M PRN SBP> or= 160 OR DBP> or= 110 Protocol Lidocaine HCl 20 ml 02/09/25 14:12 Lidocaine 1% 20 Ml Mdv ID 02/12/25 14:13 .ONCE PRN PERINEAL REPAIR Methylergonovine Maleate 0.2 mg 02/09/25 14:12 Methylergonovine 0.2 Mg/Ml Vial IM .ONCE PRN Hemorrhage Metoclopramide HCl 5 mg 02/09/25 15:42 Metoclopramide 10 Mg/2 Ml Vial IVP Q6HR PRN Nausea / Vomiting Misoprostol 600 mcg 02/09/25 14:12 Misoprostol 200 Mcg Tablet BC .ONCE PRN Hemorrhage Misoprostol 800 mcg 02/09/25 14:12 Misoprostol 200 Mcg Tablet [place] .ONCE PRN Hemorrhage Misoprostol 50 mcg 02/09/25 15:00 02/09/25 19:21 Misoprostol 100 Mcg Tablet BC 50 mcg Q4H JARRED Administration Nifedipine 10 - 20 mg 02/09/25 14:12 Nifedipine 10 Mg Capsule PO Q20M PRN SBP> or= 160 OR DBP> or= 110 Protocol Ondansetron HCl 4 mg 02/09/25 15:42 Ondansetron 4 Mg/2 Ml Vial IVP Q4HR PRN Nausea / Vomiting Oxytocin 10 unit 02/09/25 14:12 Oxytocin 10 Unit/Ml Vial IM .ONCE PRN Step One if no IV access. Polyethylene Glycol 17 gm 02/10/25 09:54 Polyethylene Glycol 3350 17 Gm Packet PO DAILY PRN Bowel Protocol Multivit/Folic Acid/Iron 1 tab 02/10/25 08:00 Vitamin Tablet PO DAILYWM JARRED Simethicone 80 mg 02/09/25 15:45 Simethicone Chew 80 Mg Tablet PO 0900,1300,1800,2100 PRN gastric upset Sodium Chloride 10 ml 02/09/25 14:12 Sodium Chloride Flush 0.9% 10 Ml Syringe IVP PRN PRN NEEDED PER PROVIDER ORDERS Sodium Chloride 10 ml 02/09/25 15:00 Sodium Chloride Flush 0.9% 10 Ml Syringe IVP Q8H JARRED Terbutaline Sulfate 0.25 mg 02/09/25 14:12 Terbutaline 1 Mg/Ml Vial SUBQ .ONCE PRN Tachystole Objective Vital Signs/Intake & Output Intake & Output: Intake & Output 02/07/25 02/08/25 02/09/25 02/10/25 23:59 23:59 23:59 23:59 Intake Total 500 / 500 3 / 3 Balance 500 / 500 3 / 3 Weight (kg) 233 lb Lab Results 02/09/25 14:05 02/09/25 14:05 Other Labs: Lab Results x24hrs 02/09/25 Range/Units 14:05 WBC 8.3 (4.8-10.8) x10^3/uL RBC 4.24 (4.20-5.40) 10^6/uL Hgb 13.5 (12.0-16.0) g/dL Hct 38.4 (37.0-47.0) % MCV 90.6 (81.0-99.0) fL MCH 31.8 H (27.0-31.0) pg MCHC 35.2 (32.0-36.0) g/dL RDW 12.7 (12.0-15.0) % Plt Count 264 (130-450) 10^3/uL MPV 10.4 (7.9-10.8) fL Neut # (Auto) 6.1 (1.5-6.6) 10^3/uL Lymph # (Auto) 1.6 (1.5-3.5) 10^3/uL [place] # (Auto) 0.4 (0.0-1.0) 10^3/uL Eos # (Auto) 0.1 (0.0-0.7) 10^3/uL Baso # (Auto) 0.0 (0.0-0.1) 10^3/uL Absolute Nucleated RBC 0.00 x10^3/uL Nucleated RBC % 0.0 /100WBC Sodium 134 L (135-145) mmol/L Potassium 3.8 (3.5-4.5) mmol/L Chloride 107 (101-111) mmol/L Carbon Dioxide 18 L (21-32) mmol/L Anion Gap 9.0 (6-13) BUN 11 (6-20) mg/dL Creatinine 0.7 (0.6-1.3) mg/dL Estimated GFR (MDRD) 104 (>89) Glucose 150 H (74-104) mg/dL Calcium 9.1 (8.5-10.3) mg/dL Total Bilirubin 0.4 (0.2-1.0) mg/dL AST 15 (10-42) IU/L ALT 14 (10-60) IU/L Alkaline Phosphatase 194 H (42-121) IU/L Total Protein 6.6 (6.4-8.9) g/dL Albumin 3.8 (3.2-5.5) g/dL Globulin 2.8 (2.1-4.2) g/dL Albumin/Globulin Ratio 1.4 (1.0-2.2) Blood Type A POSITIVE Antibody Screen NEGATIVE Assessment/Plan Problem List (1) Category II heart rate tracing during maternal care in third trimester: Impression: Patient had additional decelerations with oxytocin, so this is discontinued. We discussed the risks of additional induction agents and the uncomfortable doing more with current status. Decision made to proceed with section. There is currently a case in the operating room with the call team. We are attempting to get a secondary team in as this is not an emergent case and baby has recovered in between. Will increase urgency if status changes. Preop antibiotics ordered. Patient prepared for surgery. (2) 39 weeks gestation of :
[2025-02-10] MEDS ORDERED: MORPHINE PF 5 MG/10 ML VIAL ONE (13:50)
[2025-02-10] MEDS ORDERED: fentaNYL 100 MCG/2 ML VIAL ONE (13:51)
[2025-02-10] MEDS ORDERED: PHENYLEPHRINE 10 MG/ML VIAL ONE (13:53)
[2025-02-10] MEDS ORDERED: CARBOPROST TROMETHAMINE 250 MCG/ML VIAL IM ONE (13:53)
[2025-02-10] MEDS ORDERED: METHYLERGONOVINE 0.2 MG/ML VIAL ONE (13:53)
[2025-02-10] MEDS ORDERED: ceFAZolin (2G) 2 GM in SODIUM CHLORIDE 0.9% MINIBAG 100 ML IV ONE (14:00)
[2025-02-10] MEDS ORDERED: LACTATED RINGERS 1,000 ML IV SCH ×2 (14:00→17:00)
[2025-02-10] MEDS ORDERED: SODIUM CHLORIDE 0.9% 10 ML VIAL ONE (14:04)
--- NOTE | 2025-02-10 14:18 | ANESTHESIA PROCEDURE NOTE ---
Pre-Anesthesia VS, & Labs Diagnosis Surgical Diagnosis:: intolerance of labor Procedure Procedure: primary c/s NPO Last Food Intake: 0800 Is Patient ?: Yes Lab Results Current Lab Results: Laboratory Tests 02/09/25 14:05: WBC 8.3, RBC 4.24, Hgb 13.5, Hct 38.4, MCV 90.6, MCH 31.8 H, MCHC 35.2, RDW 12.7, Plt Count 264, MPV 10.4, Neut # (Auto) 6.1, Lymph # (Auto) 1.6, [place] # (Auto) 0.4, Eos # (Auto) 0.1, Baso # (Auto) 0.0, Absolute Nucleated RBC 0.00, Nucleated RBC % 0.0, Sodium 134 L, Potassium 3.8, Chloride 107, Carbon Dioxide 18 L, Anion Gap 9.0, BUN 11, Creatinine 0.7, Estimated GFR (MDRD) 104, G lucose 150 H, Calcium 9.1, Total Bilirubin 0.4, AST 15, ALT 14, Alkaline Phosphatase 194 H, Total Protein 6.6, Albumin 3.8, Globulin 2.8, Albumin/Globulin Ratio 1.4, Blood Type A POSITIVE, Antibody Screen NEGATIVE Lab results reviewed: Yes 02/09/25 14:05 02/09/25 14:05 Meds/Allgy Home Medications Ambulatory Orders Medication Instructions Recorded Confirmed vits no.126-ferrous fum 1 tab PO QDAY 5 02/09/25 28 mg iron-folic acid 800 mcg tablet (Classic ) Allergies Allergies Allergy/AdvReac Type Severity Reaction Status Date / Time No Known Drug Allergies Allergy Verified 01/29/25 16:20 PFSH Active Problems All Active Problems (Updated 02/10/25 @ 12:01 by Warner Seaman MD) Category II heart rate tracing during maternal care in third trimester (Acute) 39 weeks gestation of (Acute) Right upper quadrant abdominal pain affecting (Acute) Uterine size date discrepancy (Acute) Elevated blood pressure reading in office without diagnosis of hypertension (Acute) Vaginal irritation (Acute) Pelvic pain during in second trimester, antepartum (Acute) Vaginal discharge (Acute) Positive test (Acute) Medical History Medical History (Updated 02/10/25 @ 12:01 by Warner Seaman MD) Normal in second trimester Encounter for other specified screening Encounter for supervision of normal , unspecified, first trimester Surgical History Surgical History (Updated 08/09/24 @ 13:43 by Sharla Perry RN) Hx of tonsillectomy [place] teeth extracted Family History Family History (Updated 08/09/24 @ 13:45 by Sharla Perry RN) Paternal grandfather Parkinsons disease Alcoholism Paternal grandmother Dementia Mother Dementia Maternal grandfather Colon cancer Social History Social History (Updated 12/11/24 @ 15:16 by Shelli Mejia, CECILY, PRIVATE SECRETARY) Smoking Status: Never smoker Do you dip or chew tobacco?: No Do you vape?: No Living arrangement: At home Living Condition: With spouse/s.o. 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
[2025-02-10] MEDS ORDERED: ONDANSETRON 4 MG/2 ML VIAL ONE (15:12)
[2025-02-10] MEDS ORDERED: MIDAZOLAM 2 MG/2 ML VIAL ONE (15:12)
[2025-02-10] MEDS ORDERED: SIMETHICONE CHEW 80 MG TABLET PO PRN (15:45)
[2025-02-10] MEDS ORDERED: OXYTOCIN/SODIUM CHLORIDE 500 ML IV PRN (15:45)
[2025-02-10] MEDS ORDERED: ONDANSETRON ODT 4 MG TABLET TL PRN (15:45)
--- NOTE | 2025-02-10 15:46 | OPERATIVE REPORT ---
Operative Report General Admit Date: 02/09/25 Procedure Note Estimated Blood Loss (ml): 850 Pathology: None Findings: Live dinh with Apgars of 8/9. Body cord looped around head. Complications: None Other Other Information/Narrative: Preop diagnoses: 39 weeks gestation Category 2 tracing remote from delivery Gestational hypertension Postop diagnosis: Same Delivery of live dinh Status post primary low-transverse section Patient was admitted at 39 weeks gestation for induction of labor. She had 2 doses of misoprostol, but then had frequent contractions and occasional decelerations so induction was paused, she had intermittent decelerations overnight without induction agents and discussed possibility of section. Category 1 tracing the morning, so we attempted induction with oxytocin. She began having repetitive decelerations again, so we proceeded with section. had good recovery after decelerations, so we elected for regional anesthesia. section was recommended. Risks, benefits and alternatives were discussed including but not limited to infection, bleeding that may require blood products or hysterectomy for life saving measures, injury to surrounding organs including but not limited to bowel, bladder, ureters, tubes and ovaries and/or the baby. Should injury occur it could require longer/additional surgery to repair. The patient stated understanding and desired to proceed. All questions were answered posed by patient. Prior to being taken to the OR, 2 grams of cefazolin IV was administered. The patient was taken to the operating room where regional anesthesia was found to be adequate. She was then prepared and draped in the usual sterile fashion in the dorsal supine position with a leftward tilt displacing the uterus. [place] was draining to gravity. SCDs were on bilateral lower extremities. Time out was taken. A pfannenstiel skin incision was then made with the scalpel and carried through to the underlying layer of fascia. The fascia was incised in the midline and the incision extended laterally with the Dumont scissors. The superior aspect of the facial incision was then grasped with the Blanche clamps, elevated and the underlying rectus muscles dissected off sharply. Attention was then turned to the inferior aspect of this incision which in a similar fashion was grasped, elevated with the Blanche clamps and the rectus muscle dissected off sharply. The rectus muscles were in the midline. The peritoneum identified, and entered blutly. The peritoneal incision was then extended superiorly and inferiorly with good visualization of the bladder. The bladder blade was inserted. The vesicouterine peritoneum was identified, grasped with the pick- ups, and entered sharply with Metzenbaum scissors. This incision was then extended laterally and the bladder flap created digitally. The bladder blade was reinserted. The lower uterine segment was identified and incised in a transverse fashion with the scalpel. The uterine incision was then extended bluntly laterally. Artificial rupture of membranes demonstrated clear fluid. The bladder blade was removed. The fetus was in a cephalic presentation. The infants head delivered atraumatically. The anterior shoulders were delivered followed by the posterior shoulders then the remainder of the body. The infants mouth and nose were bulb suctioned. The umbilical cord was clamped times two and cut. The was handed to the pediatric team. The placenta was removed with gentle traction. Oxytocin was added to the IV fluid and was allowed to run freely. The uterus was exteriorized and cleared of all clots and debris. The uterine incision was inspected and found to be without any extensions and was repaired with 0 Vicryl in a running, locked fashion. A second imbricating layer was performed. Upon inspection, the repaired hysterotomy was found to be hemostatic. The uterus was firm and returned to the abdomen. The gutters were cleared of all clots and debris. The muscle layer was examined and found to be hemostatic. The fascia was reapproximated with 0 Vicryl in a running fashion. The subcutaneous tissue was closed with 2-0 Vicryl. The skin was closed in a subcuticular fashi on with 4-0 Monocryl. The patient tolerated the procedure well. Sponge, lap and needle counts were correct times three. The patient was taken to the recovery room in stable condition. I appreciate the assistance of Angelica Mason CNM during this procedure, and the assistance in retraction, visualization, dissection, and overall assistance during the case were instrumental to the patient's wellbeing. APGARs: 8/9 weight: Pending
[2025-02-10] MEDS ORDERED: KETOROLAC 30 MG/ML VIAL ONE (15:51)
[2025-02-10] MEDS: LACTATED RINGERS 1,000 ML IV SCH (16:05)
[2025-02-10] MEDS ORDERED: ATROPINE ABBOJECT 1 MG/10 ML SYRINGE IVP PRN (16:15)
[2025-02-10] MEDS ORDERED: ONDANSETRON 4 MG/2 ML VIAL IVP PRN (16:15)
[2025-02-10] MEDS ORDERED: NALOXONE 0.4 MG/ML VIAL IVP PRN (16:15)
[2025-02-10] MEDS ORDERED: fentaNYL 100 MCG/2 ML VIAL IVP PRN (16:15)
[2025-02-10] MEDS ORDERED: MORPHINE 2 MG/ML CARPUJECT IVP PRN (16:15)
[2025-02-10] MEDS ORDERED: HYDROmorphone 0.5 MG/0.5 ML SYRINGE IVP PRN (16:15)
--- NOTE | 2025-02-10 17:08 | ANESTHESIA POST OP EVALUATION ---
Anesthesia Post Eval Post Anesthesia Eval Vitals: Last Vital Signs Temp 36.4 C L 02/10/25 16:40 Pulse 59 L 02/10/25 16:50 Resp 16 02/10/25 16:50 BP 120/65 02/10/25 16:50 Pulse Ox 97 02/10/25 16:50 CV Function Including HR & BP: Stable Pain Control: Satisfactory Nausea & Vomiting: Negative Mental Status: Baseline Respiratory Status: Airway Patent Hydration Status: Satisfactory Anesthesia Complications: None
[2025-02-10 18:11] LABS: TOTAL PROTEIN,URINE TIMED 207.0 mg/dL
[2025-02-10] MEDS: ACETAMINOPHEN 500 MG TABLET PO SCH (18:41)
[2025-02-10] MEDS: DOCUSATE SODIUM 100 MG CAPSULE PO SCH (22:13)
[2025-02-10] MEDS: KETOROLAC 30 MG/ML VIAL IVP SCH (22:13)
[2025-02-10] MEDS ORDERED: LACTATED RINGERS 500 ML IV PRN (22:45)
[2025-02-11 03:57] LABS: HCT - HEMATOCRIT 31.1 % (37.0-47.0); HGB - HEMOGLOBIN 10.4 g/dL (12.0-16.0); MEAN PLATELET VOLUME 10.2 fL (7.9-10.8); NRBC ABSOLUTE COUNT (AUTO) 0.00 x10^3/uL; NUCLEATED RED BLOOD CELLS AUTO 0.0 /100WBC; PLT - PLATELET COUNT 193 10^3/uL (130-450); RED CELL DISTRIBUTION WIDTH 12.8 % (12.0-15.0)
[2025-02-11 04:10] LABS: ALT ALANINE AMINOTRANSFERASE 11.0 IU/L (10-60); AST ASPARTATE AMINOTRANSFERASE 18.0 IU/L (10-42); BUN - BLOOD UREA NITROGEN 12.0 mg/dL (6-20); CARBON DIOXIDE - CO2 21.0 mmol/L (21-32); CREATININE 0.7 mg/dL (0.6-1.3); GFR - MDRD 104.0 (>89)
--- NOTE | 2025-02-11 08:08 | PROVIDER PROGRESS NOTE ---
Subjective Subjective Subjective: Subjective Patient reports she is doing well. Lochia appropriate. Denies heavy bleeding. Ambulating. Pelvic and abdominal pain well-controlled. Tolerating oral intake. Diet: Regular. Voiding without difficulty. Passing flatus. Denies BM. Patient is bonding with baby in room Breast feeding going well. Denies feeling lightheaded, dizzy or excessively fatigued. No headache, right upper quadrant pain, shortness of breath. Objective General: Alert, oriented, no apparent distress. Cardiovascular: Regular rate. Regular rhythm. Lungs: No increased work of breathing. Abdomen: Uterus firm. Below umbilicus. No guarding or rebound. Extremities: No pain on palpation. No cords palpated. Distal pulses intact. Incision: Clean, dry, and intact. Current Medications Current Medications Current Medications: Current Medications Generic Name Dose Route Start Last Admin Trade Name Freq PRN Reason Stop Dose Admin Acetaminophen 1,000 mg 02/10/25 18:00 02/11/25 04:04 Acetaminophen 500 Mg Tablet PO 1,000 mg Q6HR JARRED Administration Calcium Carbonate/Glycine 500 mg 02/09/25 15:43 Calcium Carbonate Chew 500 Mg Tablet PO BID PRN heartburn Carboprost Tromethamine 250 mcg 02/09/25 14:12 Carboprost Tromethamine 250 Mcg/Ml Vial IM .ONCE PRN Hemorrhage Diphenhydramine HCl 25 mg 02/09/25 15:43 Diphenhydramine 25 Mg Capsule PO Q4HR PRN ITCHING Docusate Sodium 100 mg 02/11/25 09:00 Docusate Sodium 100 Mg Capsule PO DAILY JARRED Hydralazine HCl 5 - 10 mg 02/09/25 14:12 Hydralazine Inj 20 Mg/Ml Vial IVP Q20M PRN SBP> or= 160 OR DBP> or= 110 Protocol Hydroxyzine Pamoate 25 mg 02/09/25 15:43 Hydroxyzine Pamoate 25 Mg Capsule PO QPM PRN Insomnia Lactated Ringer's 500 mls @ 999 mls/hr 02/09/25 14:12 02/11/25 01:23 Lr IV Infused PRN PRN Infusion Heart Rate Abnormalities Oxytocin/Sodium Chloride 500 mls @ 999 mls/hr 02/09/25 14:12 Pitocin/Sodium Chloride IV PRN PRN POST- HEMORR PREVENTION Protocol 999 MILLIUNIT/MIN Tranexamic Acid 1,000 mg in 100 mls @ 600 mls/hr 02/09/25 14:12 Tranexamic 1,000 Mg/100ml-Nacl IV Q30M PRN EBL >1200mL and within 3hr Lactated Ringer's 1,000 mls @ 125 mls/hr 02/09/25 16:00 02/10/25 09:10 Lr IV 125 mls/hr .Q8H PRN Administration dehydration Oxytocin/Sodium Chloride 500 mls @ 2 mls/hr 02/10/25 11:00 02/10/25 12:01 Pitocin/Sodium Chloride IV 6 milliunit/min TITR JARRED 6 mls/hr Protocol Titration 2 MILLIUNIT/MIN Lactated Ringer's 1,000 mls @ 100 mls/hr 02/10/25 16:00 02/10/25 16:07 Lr IV 100 mls/hr .Q10H JARRED Infusion Lactated Ringer's 500 mls @ 999 mls/hr 02/10/25 22:45 Lr IV PRN PRN urine Ibuprofen 600 mg 02/11/25 12:00 Ibuprofen 600 Mg Tablet PO Q6HR JARRED Labetalol HCl 20 - 80 mg 02/09/25 14:12 Labetalol 20 Mg/4 Ml Syringe IVP Q10M PRN SBP> or= 160 OR DBP> or= 110 Protocol Labetalol HCl 20 mg 02/09/25 14:12 Labetalol 20 Mg/4 Ml Syringe IVP .ONCE PRN SBP> or= 160 OR DBP> or= 110 Protocol Labetalol HCl 20 - 40 mg 02/09/25 14:12 Labetalol 20 Mg/4 Ml Syringe IVP Q10M PRN SBP> or= 160 OR DBP> or= 110 Protocol Lidocaine HCl 20 ml 02/09/25 14:12 Lidocaine 1% 20 Ml Mdv ID 02/12/25 14:13 .ONCE PRN PERINEAL REPAIR Methylergonovine Maleate 0.2 mg 02/09/25 14:12 Methylergonovine 0.2 Mg/Ml Vial IM .ONCE PRN Hemorrhage Metoclopramide HCl 5 mg 02/09/25 15:42 Metoclopramide 10 Mg/2 Ml Vial IVP Q6HR PRN Nausea / Vomiting Misoprostol 600 mcg 02/09/25 14:12 Misoprostol 200 Mcg Tablet BC .ONCE PRN Hemorrhage Misoprostol 800 mcg 02/09/25 14:12 Misoprostol 200 Mcg Tablet WI .ONCE PRN Hemorrhage Nifedipine 10 - 20 mg 02/09/25 14:12 Nifedipine 10 Mg Capsule PO Q20M PRN SBP> or= 160 OR DBP> or= 110 Protocol Ondansetron HCl 4 mg 02/10/25 15:45 Ondansetron Odt 4 Mg Tablet TL Q4HR PRN Nausea / Vomiting Oxycodone HCl 5 mg 02/10/25 15:45 Oxycodone 5 Mg Tablet PO Q4HR PRN Moderate Pain (Level 4-6) Oxytocin 10 unit 02/09/25 14:12 Oxytocin 10 Unit/Ml Vial IM .ONCE PRN Step One if no IV access. Polyethylene Glycol 17 gm 02/10/25 09:54 Polyethylene Glycol 3350 17 Gm Packet PO DAILY PRN Bowel Protocol Multivit/Folic Acid/Iron 1 tab 02/10/25 08:00 Vitamin Tablet PO DAILYWM JARRED Simethicone 80 mg 02/09/25 15:45 Simethicone Chew 80 Mg Tablet PO 0900,1300,1800,2100 PRN gastric upset Sodium Chloride 10 ml 02/09/25 14:12 Sodium Chloride Flush 0.9% 10 Ml Syringe IVP PRN PRN NEEDED PER PROVIDER ORDERS Sodium Chloride 10 ml 02/09/25 15:00 Sodium Chloride Flush 0.9% 10 Ml Syringe IVP Q8H JARRED Terbutaline Sulfate 0.25 mg 02/09/25 14:12 Terbutaline 1 Mg/Ml Vial SUBQ .ONCE PRN Tachystole Objective Vital Signs/Intake & Output Vital Signs: Vital Signs x48h Temp Pulse Resp BP Pulse Ox 02/11/25 05:13 68 18 116/50 L 96 02/11/25 01:00 36.8 C 85 16 110/55 L 97 Intake & Output: Intake & Output 02/08/25 02/09/25 02/10/25 02/11/25 23:59 23:59 23:59 23:59 Intake Total 500 / 500 1203 / 1203 500 / 500 Output Total 123 / 123 1152 / 1152 Balance 500 / 500 1080 / 1080 -722 / -652 Weight (kg) 233 lb Lab Results 02/11/25 03:50 02/11/25 03:50 Other Labs: Lab Results x24hrs 02/11/25 02/10/25 Range/Units 03:50 17:00 WBC 9.3 (4.8-10.8) x10^3/uL RBC 3.35 L (4.20-5.40) 10^6/uL Hgb 10.4 L (12.0-16.0) g/dL Hct 31.1 L (37.0-47.0) % MCV 92.8 (81.0-99.0) fL MCH 31.0 (27.0-31.0) pg MCHC 33.4 (32.0-36.0) g/dL RDW 12.8 (12.0-15.0) % Plt Count 193 (130-450) 10^3/uL MPV 10.2 (7.9-10.8) fL Neut # (Auto) 6.9 H (1.5-6.6) 10^3/uL Lymph # (Auto) 1.6 (1.5-3.5) 10^3/uL [place] # (Auto) 0.7 (0.0-1.0) 10^3/uL Eos # (Auto) 0.1 (0.0-0.7) 10^3/uL Baso # (Auto) 0.0 (0.0-0.1) 10^3/uL Absolute Nucleated RBC 0.00 x10^3/uL Nucleated RBC % 0.0 /100WBC Sodium 135 (135-145) mmol/L Potassium 3.8 (3.5-4.5) mmol/L Chloride 107 (101-111) mmol/L Carbon Dioxide 21 (21-32) mmol/L Anion Gap 7.0 (6-13) BUN 12 (6-20) mg/dL Creatinine 0.7 (0.6-1.3) mg/dL Estimated GFR (MDRD) 104 (>89) Glucose 80 (74-104) mg/dL Calcium 8.5 (8.5-10.3) mg/dL Total Bilirubin 0.4 (0.2-1.0) mg/dL AST 18 (10-42) IU/L ALT 11 (10-60) IU/L Alkaline Phosphatase 135 H (42-121) IU/L Total Protein 4.8 L (6.4-8.9) g/dL Albumin 2.9 L (3.2-5.5) g/dL Globulin 1.9 L (2.1-4.2) g/dL Albumin/Globulin Ratio 1.5 (1.0-2.2) Urine Creatinine 102.3 mg/dL Ur Total Protein Timed 207 mg/dL Protein/Creatinin Ratio 2.0 H (<=0.2) Assessment/Plan Problem List (1) care and examination of lactating mother: Impression: Normal course. Anticipate discharge in 1 to 2 days. (2) Delivery by section: Impression: Bandage removed today. Slightly more bloody on left border of incision, but dried and not currently bleeding. (3) Gestational hypertension: Impression: No signs or symptoms of worsening disease. I believe her protein creatinine ratio was likely abnormally elevated due to blood. No other lab abnormalities. Blood pressure has been normal. Qualifiers: Trimester: third trimester Qualified Code(s): O13.3 - Gestational [-induced] hypertension without significant proteinuria, third trimester
[2025-02-11] MEDS: oxyCODONE 5 MG TABLET PO PRN (08:24)
[2025-02-11] MEDS: DOCUSATE SODIUM 100 MG CAPSULE PO SCH (08:24)
[2025-02-11] MEDS: PRENATAL VITAMIN TABLET PO SCH (08:24)
[2025-02-11] MEDS: SIMETHICONE CHEW 80 MG TABLET PO PRN (08:29)
[2025-02-11] MEDS: IBUPROFEN 600 MG TABLET PO SCH (16:10)
[2025-02-12 06:44] VITALS: O2SAT 96
[2025-02-12 14:37] VITALS: BP 135/85; TEMP 98.2
--- NOTE | 2025-02-12 14:40 | Labor Flowsheet ---
Labor Flowsheet Datetime Report Generated by CPN: 02/12/2025 14:40 Datetime: 02/10/2025 19:23 Membranes Ruptured Date/Time: 02/10/2025 15:09 Membranes Rupture Method: Artificial Amniotic Fluid Amount: Large Datetime: 02/10/2025 13:51 Communication Comments: up to BR Datetime: 02/10/2025 13:23 VITAL SIGNS NBP Sys/Linnea/Mean (mmHg): 144 : 76 : 92 Pulse: 71 LaborFlag: Labor Datetime: 02/10/2025 13:21 Patient Care Comments: Pt shaved and SCDs applied. Datetime: 02/10/2025 13:15 COMMUNICATION Communication: RN Reviewed Strip Datetime: 02/10/2025 13:00 UTERINE ACTIVITY Monitor Mode: External Frequency (min): 135 Quality: Moderate Duration (sec): 2-4 Pattern: Normal: <= 5 Contractions in 10 Minutes Resting Tone (Palpate): Relaxed Intensity IUP (mmHg): 50-120 FHR Baseline Rate : 135 Variability: Moderate 6-25 bpm Accelerations: 15X15 Decelerations: None Category: Category II Datetime: 02/10/2025 12:32 Patient Position/Activity: Hands-Knees Datetime: 02/10/2025 12:31 MEDICATIONS Pitocin (milliunits): Discontinued Datetime: 02/10/2025 12:30 Pitocin Checklist: At Least 1 Acceleration of 15 bpm x 15 Seconds in 30 Minutes or Adequate Variability; No More than 2 Variable Decelerations > 60 Seconds in Duration and decreasing >60 bpm in 30 minutes; No More than 5 Uterine Contractions in 10 Minutes for any 20 Minute Interval; Uterus Palpates Soft between Contractions; IUPC Resting Tone less than 25 mmHg Datetime: 02/10/2025 12:00 Monitor Interventions for UA: [place] Adjusted ASSESSMENT A Monitor Mode: External US Datetime: 02/10/2025 10:52 I/O Interventions: Up to BR Datetime: 02/10/2025 09:30 Comments: broken tracing, Datetime: 02/10/2025 09:18 Monitor Interventions for FHR: Ultrasound Adjusted Datetime: 02/10/2025 08:41 Vital Sign Comments: standing Datetime: 02/10/2025 08:39 SpO2 (%): 98 Datetime: 02/10/2025 08:23 VAGINAL EXAM Dilatation (cm): 1.5 Effacement (%): 70 Station: -3 Exam by: Isabella CNSera Vaginal Bleeding: None Cervix, Consistency: Moderate Cervix, Position: Midposition Datetime: 02/10/2025 07:15 PATIENT CARE Oxygen Method: Room Air Datetime: 02/10/2025 06:30 Contraction Comments: pt states ctx are more painful when sitting upright vs laying sidelying Datetime: 02/10/2025 04:12 Respirations: 16 Temperature (C): 36.7 MATERNAL ASSESSMENT Level of Consciousness: Alert Headache: Denies Nausea/Vomiting: Denies RUQ Epigastric Pain: Denies Datetime: 02/09/2025 22:30 Membrane Status: Intact Datetime: 02/09/2025 20:52 Medication Comments: Lactated Ringers 500 ml bolus given Datetime: 02/09/2025 15:13 Cervical Ripening Agents: Cytotec @ Datetime: 02/09/2025 13:55 Stage of : Labor
--- NOTE | 2025-02-12 23:41 | Discharge Summary ---
"Discharge Summary Admit Date: 02/09/25 Discharge Date: 02/12/25 Discharging Provider: Keleln Vargas MD Code Status: Attempt Resuscitation DIAGNOSES Admission Diagnoses: at 39 weeks. presents for elective induction Discharge Diagnoses with Status of Each Condition: same delivered by C section. HPI History of Present Illness: G1 with uncomplicated admitted for elective induction. CONSULTS | PROCEDURES Procedures: C section HOSPITAL COURSE Hospital Course: Admitted and started on miso x 2 then staffing was such that no further medication could be given over night. During that time, Ayde had times of signficant painful contractions on and off. She also had a few prolonged decels. In the morning this pattern continued and she was still quite remote from delivery. Also, she developed gestational hypertension but no proteinuria or lab abnormalities. Given this, c section was decided upon and done without complication. Baby had the cord wrapped around its body. She was discharged home on PPD #2. ALLERGIES Allergies Allergy/AdvReac Type Severity Reaction Status Date / Time No Known Drug Allergies Allergy Verified 01/29/25 16:20 MEDICATIONS Ambulatory Orders Medication Instructions Recorded Confirmed vits [id number] fum 1 tab PO QDAY 5 02/09/25 28 mg iron-folic acid 800 mcg tablet (Classic ) acetaminophen 325 mg capsule 325 - 650 mg (1 - 2 x 325 mg) PO 02/12/25 Q4H PRN pain #60 caps docusate sodium 100 mg capsule 100 mg PO BID PRN const ipation #60 02/12/25 (Colace) caps ibuprofen 600 mg tablet 600 mg PO Q6H PRN pain #30 t abs 02/12/25 oxycodone 5 mg tablet 5 mg PO Q4H PRN pain #10 tab s 02/12/25 PHYSICAL EXAM AT DISCHARGE Vital Signs: VSS Respiratory: positive No respiratory distress Cardiovascular: positive Regular rate & rhythm Abdomen: positive Other (appropriately tender. wound healing well. ) LABS 02/11/25 03:50 02/11/25 03:50 FOLLOW UP Follow Up: follow up in clinic in 1 to 2 weeks. Discharge Plan Discharge Patient Disposition: Home, Self Care Prescriptions: Continued docusate sodium [Colace] 100 mg capsule 100 mg PO BID PRN (Reason: constipation) Qty: 60 1RF ibuprofen 600 mg tablet 600 mg PO Q6H PRN (Reason: pain) Qty: 30 1RF oxycodone 5 mg tablet 5 mg PO Q4H PRN (Reason: pain) Qty: 10 0RF acetaminophen 325 mg capsule 325 - 650 mg PO Q4H PRN (Reason: pain) Qty: 60 1RF Classic 28 mg iron- 800 mcg tablet 1 tab PO QDAY Activity Restrictions/Additional Instructions: nothing in vagina for 6 week. no lifting more than 15 pounds for 6 weeks. OK to shower, no bath for 2 weeks. call if bps are over 150/100 more than once, significant headache, or very heavy bleeding. Constipation is common. Be sure to eat lots of fruits and veggie, drink lots of water. Coffee can be helpful if you like it and 1 cup is fine for baby Print Language: [place] Patient Instructions: After a , - Latch On Follow-up Care: Angelica Mason ARNP [Primary Care Provider, Obstetrics/Gynecology] Vitals documented within 30 minutes of discharge?: Yes"
== END 2025-02-12 14:39 | disposition home or self-care (01) | DRG 788 ==
LOC: WFO 13:34 → FBP 13:38
PROVIDERS: ADMIT Nurse Practitioner; ATTEND Nurse Practitioner